=== PATIENT | female | born 1950 | race Caucasian/White ===

== ENCOUNTER 2017-08-11 16:27 | Inpatient (IN) | payer OTHER, MEDICARE ==
[~2017-08-11] VITALS: Ht 152.4 cm; Wt 65.0 kg
[~2017-08-11 16:27] MED LIST: MORPHINE SULFATE 4 MG/ML INJ IV PUSH ONE
[2017-08-11] MEDS ORDERED: ceFAZolin 2 GM PREMIX 50 ML ONE (16:31)
[2017-08-11 16:32] VITALS: O2SAT 98
[2017-08-11] MEDS ORDERED: DIPHTH/TETANUS/ACEL PERTUSSIS (BOOSTER) 0.5 ML VIAL/PFS IM ONE (16:32)
[2017-08-11] MEDS: SODIUM CHLOR 0.9% 1000 ML INJ 1,000 ML IV SCH (16:47)
[2017-08-11 16:49] LABS: I-STAT POTASSIUM 3.4 MMOL/L (3.5-4.9)
[2017-08-11 16:50] VITALS: BP 85/59; PULSE 102; RESP 25; TEMP 98; O2SAT 100
[2017-08-11 16:51] VITALS: BP 85/59; PULSE 102; RESP 25; TEMP 98; O2SAT 100
[2017-08-11 16:52] LABS: BASOPHIL % 0.2 % (0.0-2.0); EOSINOPHIL # 0.1 TH/MM3 (0-0.4); EOSINOPHIL % 0.5 % (0.0-4.0); HEMATOCRIT 34.1 % (35.0-46.0); HEMO FLAGS DIFF FINAL; LYMPH % 16.8 % (9.0-44.0); MEAN CELL VOLUME 95.8 FL (80.0-100.0); MEAN CORPUSCULAR HEMOGLOBIN 32.8 PG (27.0-34.0); MEAN CORPUSCULAR HGB CONC 34.2 % (32.0-36.0); MONO % 3.4 % (0.0-8.0); NEUT % 79.1 % (16.0-70.0); PLATELET COUNT 269 TH/MM3 (150-450); RED BLOOD COUNT 3.56 MIL/MM3 (4.00-5.30); RED CELL DISTRIBUTION WIDTH 13.3 % (11.6-17.2); WHITE BLOOD COUNT 17.7 TH/MM3 (4.0-11.0)
[2017-08-11 16:57] LABS: APTT (PATIENT) 26.4 SEC (24.3-30.1); PROTHROMBIN TIME - PATIENT 11.1 SEC (9.8-11.6)
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
[2017-08-11] MEDS ORDERED: SODIUM CHLORIDE 0.9% FLUSH 10 ML FLUSH IV FLUSH PRN (17:00)
[2017-08-11] MEDS ORDERED: ONDANSETRON HCL 4 MG/2 ML VIAL IV PUSH PRN (17:00)
[2017-08-11] MEDS ORDERED: Post-op Orders (for Pharmacy) MISC XX ONE (17:00)
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
[2017-08-11] MEDS ORDERED: IOHEXOL 350 MG/ML 10 ML VIAL (for RAD DIAG) IV PUSH ONE (17:14)
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
--- NOTE | 2017-08-11 17:51 | RADRPT ---
EXAM DATE/TIME: 08/11/2017 17:20 [facility] COMPARISON: SHOULDER LEFT (1 VW), August 11, 2017, 16:20. CT THORAX W CONTRAST, August 11, 2017, 17:02. INDICATIONS : Post reduction left shoulder. MEDICAL HISTORY : Non-responsive. SURGICAL HISTORY : Non-responsive. ENCOUNTER: Subsequent ACUITY: 1 day PAIN SCORE: Non-responsive. LOCATION: Left shoulder. FINDINGS: Interval reduction of anterior left shoulder dislocation. There is now anatomic alignment of the regina ohumeral joint. Small Hill-Sachs deformity. The redemonstration of mid to distal clavicle fracture. R emainder of exam is unchanged. CONCLUSION: 1. Anatomic alignment status post reduction of anterior left shoulder dislocation. 2. Small left humeral head Hill-Sachs deformity. 3. Mid to distal left clavicle fracture. Justin Ventura MD on August 11, 2017 at 17:46 Board Certified Radiologist. This report was verified electronically.
[2017-08-11] MEDS: MORPHINE SULFATE 4 MG/ML INJ IV PUSH PRN (17:54)
[2017-08-11 18:00] VITALS: PULSE 96
[2017-08-11] MEDS ORDERED: LIDOCAINE HCL 1% 50 ML VIAL ONE ×2 (18:07→19:35)
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
[2017-08-11] MEDS ORDERED: ALBUMIN HUMAN 5% 12.5 GM/250 ML BOTTLE IV ONE (19:10)
[2017-08-11 19:43] LABS: BLOOD GAS VENOUS HCO3 22 mmol/L (22-26); BLOOD GAS VENOUS O2 CONTENT 3.8 Vol % (9.0-17.0); BLOOD GAS VENOUS O2 HGB SAT 34 % (70-76); BLOOD GAS VENOUS PCO2 54 mmHg (44-48); BLOOD GAS VENOUS PO2 25 mmHg (35-40); BLOOD GAS VENOUS pH 7.22 (7.360-7.400); TEMP CORR TO 98.6
[2017-08-11 19:44] LABS: CRITICAL VALUE YES; LITER FLOW 4 L/M; OXYGEN DEVICE NASAL CANNULA
[2017-08-11 19:45] LABS: DRAW SITE CENTRAL LINE; STAT YES
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
[2017-08-11 20:00] VITALS: BP 87/50; PULSE 83; PULSE 90; RESP 23; TEMP 99; O2SAT 96
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
--- NOTE | 2017-08-11 20:34 | RADRPT ---
EXAM DATE/TIME: 08/11/2017 19:43 [facility] COMPARISON: CHEST SINGLE AP, August 11, 2017, 16:20. INDICATIONS : Evaluate for pneumothorax status post line placement attempt. MEDICAL HISTORY : None. SURGICAL HISTORY : None. ENCOUNTER: Subsequent ACUITY: 1 day PAIN SCORE: Non-responsive. LOCATION: chest FINDINGS: A single view of the chest demonstrates the lungs to be symmetrically aerated without evidence of mas s, infiltrate or effusion. No evidence of pneumothorax. The cardiomediastinal contours are unremark able. Fracture of the left clavicle is obscured by overlying metallic clip. CONCLUSION: No evidence of pneumothorax. Santiago Davis MD on August 11, 2017 at 20:32 Board Certified Radiologist. This report was verified electronically.
[2017-08-11] MEDS ORDERED: MISCELLANEOUS NURSING INFORMATION XX SCH (21:00)
[2017-08-11] MEDS ORDERED: RESP: ALBUTEROL 2.5 MG/IPRATROPIUM 0.5 MG NEB (PRN) INH (21:00)
[2017-08-11] MEDS: SODIUM CHLORIDE 0.9% FLUSH 10 ML FLUSH IV FLUSH SCH (21:00)
[2017-08-11] MEDS ORDERED: CHLORHEXIDINE GLUCONATE 2 % 1 PACK (2 CLOTHS) TOP PRN (21:00)
[2017-08-11] MEDS: DOCUSATE SODIUM 50 MG/SENNA 8.6 MG TAB PO SCH (21:15)
[2017-08-11] MEDS: levETIRAcetam INJ 500 MG in SODIUM CHLORIDE 0.9% INJ 100 ML IV SCH (21:16)
[2017-08-11] MEDS: FAMOTIDINE 20 MG TAB PO SCH (21:16)
[2017-08-11] MEDS: METHOCARBAMOL 500 MG TAB PO SCH (21:16)
[2017-08-11] MEDS: MAGNESIUM HYDROXIDE SUSP 30 ML CUP PO SCH (21:17)
[2017-08-11 21:30] VITALS: O2SAT 99
[2017-08-11] MEDS: LIDOCAINE HCL 5% PATCH T-DERMAL SCH (21:57)
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
[2017-08-11 23:46] LABS: HEMATOCRIT 29.9 % (35.0-46.0); REVIEW FLAG FINAL
[2017-08-12] VITALS (14 sets, daily range): BP systolic 56–130; BP diastolic 56–67; PULSE 64–81; RESP 16–20; TEMP 98–100.8; O2SAT 95–100
[2017-08-12] MEDS: ceFAZolin 500 MG/NS 100 ML IV SCH ×4 (00:17→09:29)
--- NOTE | 2017-08-12 01:11 | EKG ---
Date Performed: 08/11/2017 Time Performed: 19:14:56 PTAGE: 89 years EKG: Sinus rhythm . Inferior ST-T changes are nonspecific Borderline ECG NO PREVIOUS TRACING DOCTOR: David Correa Interpretating Date/Time 08/12/2017 01:10:44
[2017-08-12] MEDS: CHLORHEXIDINE GLUCONATE 2 % 1 PACK (2 CLOTHS) TOP SCH (03:43)
[2017-08-12 04:42] LABS: AUTOMATED NEUTROPHIL # 8.1 TH/MM3 (1.8-7.7); BASOPHIL % 0.1 % (0.0-2.0); HEMATOCRIT 28.3 % (35.0-46.0); HEMO FLAGS DIFF FINAL; LYMPH % 6.4 % (9.0-44.0); LYMPHOCYTE # 0.6 TH/MM3 (1.0-4.8); MEAN CELL VOLUME 92.1 FL (80.0-100.0); MEAN CORPUSCULAR HEMOGLOBIN 32.5 PG (27.0-34.0); MEAN CORPUSCULAR HGB CONC 35.3 % (32.0-36.0); MONO % 6.9 % (0.0-8.0); NEUT % 86.6 % (16.0-70.0); PLATELET COUNT 127 TH/MM3 (150-450); RED BLOOD COUNT 3.07 MIL/MM3 (4.00-5.30); RED CELL DISTRIBUTION WIDTH 15.8 % (11.6-17.2); WHITE BLOOD COUNT 9.4 TH/MM3 (4.0-11.0)
[2017-08-12 04:59] LABS: BICARBONATE 23.2 MEQ/L (21.0-32.0); POTASSIUM 3.6 MEQ/L (3.5-5.1)
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
[2017-08-12 05:21] LABS: CALCIUM-PROTEIN CORRECTED 8.3 MG/DL (8.5-10.1)
[2017-08-12] MEDS: METHOCARBAMOL 500 MG TAB PO SCH ×3 (05:48→21:28)
[2017-08-12] MEDS: SODIUM CHLOR 0.9% 1000 ML INJ 1,000 ML IV SCH ×2 (06:11→13:59)
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
[2017-08-12] MEDS: levETIRAcetam INJ 500 MG in SODIUM CHLORIDE 0.9% INJ 100 ML IV SCH (08:51)
[2017-08-12] MEDS: DOCUSATE SODIUM 50 MG/SENNA 8.6 MG TAB PO SCH ×2 (08:51→21:28)
[2017-08-12] MEDS: FAMOTIDINE 20 MG TAB PO SCH ×2 (08:52→21:28)
[2017-08-12] MEDS: oxyCODONE/ACETAMINOPHEN 5 MG/325 MG TAB PO PRN ×3 (08:52→21:28)
[2017-08-12] MEDS: SODIUM CHLORIDE 0.9% FLUSH 10 ML FLUSH IV FLUSH SCH ×2 (09:00→21:28)
[2017-08-12] MEDS: REMOVE OLD LIDOCAINE PATCH T-DERMAL SCH (09:00)
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
--- NOTE | 2017-08-12 12:03 | ECHRPT ---
Indication: trauma to chest CONCLUSIONS The left ventricular systolic function is low normal with an estimated ejection fraction in the rang e of 50- 55%. Normal left ventricular size. Trace mitral valve regurgitation. There is mild tricuspid valve regurgitation. BP: / HR: Rhythm: MEASUREMENTS (Male / Female) Normal Values Technical Quality:Very technically difficult study 2D ECHO LV Diastolic Diameter PLAX 2.9 cm 4.2 - 5.9 / 3.9 - 5.3 cm LV Systolic Diameter PLAX 2.3 cm IVS Diastolic Thickness 1.1 cm 0.6 - 1.0 / 0.6 - 0.9 cm LVPW Diastolic Thickness 0.8 cm 0.6 - 1.0 / 0.6 - 0.9 cm LV Relative Wall Thickness 0.6 RV Internal Dim ED PLAX 2.8 cm M-MODE Aortic Root Diameter MM 3.1 cm LA Systolic Diameter MM 3.8 cm LA Ao Ratio MM 1.2 AV Cusp Separation MM 2.4 cm DOPPLER Mitral E Point Velocity 62.7 cm/s Mitral A Point Velocity 63.7 cm/s Mitral E to A Ratio 1.0 LV E' Lateral Velocity 7.6 cm/s Mitral E to LV E' Lateral Ratio 8.3 LV E' Septal Velocity 8.0 cm/s Mitral E to LV E' Septal Ratio 7.8 TR Peak Velocity 195.0 cm/s TR Peak Gradient 15.2 mmHg Right Atrial Pressure 10.0 mmHg Pulmonary Artery Systolic Pressu 25.2 mmHg Right Ventricular Systolic Press 25.2 mmHg FINDINGS LEFT VENTRICLE The left ventricular systolic function is low normal with an estimated ejection fraction in the rang e of 50- 55%. Normal left ventricular size. RIGHT VENTRICLE Normal right ventricular size and systolic function. LEFT ATRIUM The left atrial size is normal. RIGHT ATRIUM The right atrial size is normal. ATRIAL SEPTUM Normal atrial septal thickness without atrial level shunting by limited color doppler interrogation. AORTA The aortic root and proximal ascending aorta are normal in size on limited imaging. MITRAL VALVE Structurally normal mitral valve. Trace mitral valve regurgitation. AORTIC VALVE Trileaflet aortic valve. No aortic valve stenosis or regurgitation. TRICUSPID VALVE Structurally normal tricuspid valve. There is mild tricuspid valve regurgitation. PULMONARY VALVE The pulmonary valve is not well visualized. VESSELS The inferior vena cava is normal in size. PERICARDIUM No pericardial effusion. Raad Greenwood MD (Electronically Signed) Final Date:12 August 2017 12:01
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
[2017-08-12] MEDS: MORPHINE SULFATE 4 MG/ML INJ IV PUSH PRN ×2 (12:31→16:56)
[2017-08-12] MEDS ORDERED: BACITRACIN TOP OINT 15 GM TUBE TOPICAL PRN (13:15)
[2017-08-12] MEDS: CEPHALEXIN MONOHYDRATE 500 MG CAP PO SCH ×2 (13:59→21:28)
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
[2017-08-12] MEDS: MAGNESIUM HYDROXIDE SUSP 30 ML CUP PO SCH (21:00)
[2017-08-12] MEDS: levETIRAcetam 500 MG TAB PO SCH (21:28)
[2017-08-12] MEDS: LIDOCAINE HCL 5% PATCH T-DERMAL SCH (21:39)
[2017-08-13] VITALS (12 sets, daily range): BP systolic 92–117; BP diastolic 51–62; PULSE 76–93; RESP 14–24; TEMP 97.3–100; O2SAT 91–100
[2017-08-13] MEDS: CHLORHEXIDINE GLUCONATE 2 % 1 PACK (2 CLOTHS) TOP SCH (03:39)
--- NOTE | 2017-08-13 04:59 | RADRPT ---
EXAM DATE/TIME: 08/13/2017 04:36 [facility] COMPARISON: CT BRAIN W/O CONTRAST, August 11, 2017, 16:50. INDICATIONS : Follow up trauma. RADIATION DOSE: 56.35 CTDIvol (mGy) ; Tabletop CT Head MEDICAL HISTORY : Non-responsive. SURGICAL HISTORY : Non-responsive. ENCOUNTER: Subsequent ACUITY: 2 days PAIN SCALE: Non-responsive LOCATION: cranial TECHNIQUE: Multiple contiguous axial images were obtained of the head. Using automated exposure control and adj ustment of the mA and/or kV according to patient size, radiation dose was kept as low as reasonably a chievable to obtain optimal diagnostic quality images. DICOM format image data is available electro nically for review and comparison. FINDINGS: CEREBRUM: The ventricles are normal for age. No evidence of midline shift, mass lesion, hemorrhage or acute in farction. No extra-axial fluid collections are seen. POSTERIOR FOSSA: The cerebellum and brainstem are intact. The 4th ventricle is midline. The cerebellopontine angle i s unremarkable. EXTRACRANIAL: Left scalp lacerations are again noted. Previously seen foreign matter has been removed. SKULL: The calvaria is intact. No evidence of skull fracture. CONCLUSION: Negative noncontrast head CT. No new or reproducible intracranial hemorrhage. King Avina MD on August 13, 2017 at 4:55 Board Certified Radiologist. This report was verified electronically.
[2017-08-13 05:43] LABS: BASOPHIL % 0.3 % (0.0-2.0); EOSINOPHIL # 0.1 TH/MM3 (0-0.4); HEMATOCRIT 27.1 % (35.0-46.0); HEMO FLAGS DIFF FINAL; LYMPH % 14.3 % (9.0-44.0); LYMPHOCYTE # 1.1 TH/MM3 (1.0-4.8); MEAN CELL VOLUME 91.4 FL (80.0-100.0); MEAN CORPUSCULAR HEMOGLOBIN 31.9 PG (27.0-34.0); MEAN CORPUSCULAR HGB CONC 34.9 % (32.0-36.0); MONO % 7.9 % (0.0-8.0); NEUT % 76.5 % (16.0-70.0); PLATELET COUNT 113 TH/MM3 (150-450); RED BLOOD COUNT 2.97 MIL/MM3 (4.00-5.30); RED CELL DISTRIBUTION WIDTH 15.7 % (11.6-17.2); WHITE BLOOD COUNT 7.8 TH/MM3 (4.0-11.0)
[2017-08-13] MEDS: CEPHALEXIN MONOHYDRATE 500 MG CAP PO SCH ×3 (05:44→22:00)
[2017-08-13] MEDS: METHOCARBAMOL 500 MG TAB PO SCH ×3 (05:44→22:01)
[2017-08-13 05:58] LABS: BICARBONATE 25.1 MEQ/L (21.0-32.0); POTASSIUM 3.3 MEQ/L (3.5-5.1)
--- NOTE | 2017-08-13 06:22 | RADRPT ---
EXAM DATE/TIME: 08/13/2017 04:55 [facility] COMPARISON: CHEST SINGLE AP, August 12, 2017, 3:26. INDICATIONS : Short of breath. MEDICAL HISTORY : Non-responsive. SURGICAL HISTORY : Non-responsive. ENCOUNTER: Subsequent ACUITY: 3 days PAIN SCORE: 0/10 LOCATION: Bilateral chest FINDINGS: Mild left base consolidation again noted not significantly changed right lung remains clear. No large effusion demonstrated. No pneumothorax. Heart size stable, within normal limits. CONCLUSION: No significant change trace left base consolidation. King Avina MD on August 13, 2017 at 6:20 Board Certified Radiologist. This report was verified electronically.
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
[2017-08-13] MEDS: REMOVE OLD LIDOCAINE PATCH T-DERMAL SCH (09:00)
[2017-08-13] MEDS ORDERED: LACTULOSE SYRUP 20 GM/30 ML CUP PO SCH (09:00)
[2017-08-13] MEDS ORDERED: POTASSIUM CHLORIDE 10 MEQ CONTROLLED RELEASE TAB PO ONE (09:00)
[2017-08-13] MEDS: levETIRAcetam 500 MG TAB PO SCH ×2 (09:20→22:00)
[2017-08-13] MEDS: DOCUSATE SODIUM 50 MG/SENNA 8.6 MG TAB PO SCH ×2 (09:20→21:00)
[2017-08-13] MEDS: SODIUM CHLORIDE 0.9% FLUSH 10 ML FLUSH IV FLUSH SCH ×2 (09:20→22:01)
[2017-08-13] MEDS: MORPHINE SULFATE 4 MG/ML INJ IV PUSH PRN (09:20)
[2017-08-13] MEDS: oxyCODONE/ACETAMINOPHEN 5 MG/325 MG TAB PO PRN ×4 (09:21→23:46)
[2017-08-13] MEDS: FAMOTIDINE 20 MG TAB PO SCH ×2 (09:21→22:00)
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
[2017-08-13] MEDS ORDERED: SENN1TAB PO (13:24)
[2017-08-13] MEDS ORDERED: MAGN400S PO (13:24)
--- NOTE | 2017-08-13 17:37 | PD.ORT.PN ---
Subjective Subjective Remarks Patient comfortable. Pain with movement of left arm. Objective Vitals Vital Signs Date Time Temp Pulse Resp B/P (MAP) Pulse Ox O2 Delivery O2 Flow Rate FiO2 08/13/17 16:00 88 08/13/17 16:00 98.2 88 24 117/62 (80) 96 08/13/17 14:00 77 08/13/17 12:00 98.1 77 19 92/51 (65) 98 08/13/17 12:00 77 08/13/17 10:00 78 08/13/17 09:41 16 08/13/17 08:24 100 Nasal Cannula 2.00 08/13/17 08:00 99.5 85 15 97/55 (69) 100 08/13/17 08:00 85 08/13/17 08:00 96 Room Air 08/13/17 07:00 100 Nasal Cannula 2.00 08/13/17 06:00 83 08/13/17 04:00 76 08/13/17 04:00 99.8 81 20 103/55 (71) 100 08/13/17 02:00 79 08/13/17 00:00 100.0 81 14 102/57 (72) 99 08/13/17 00:00 81 08/12/17 22:00 77 08/12/17 20:53 100 Nasal Cannula 3.00 08/12/17 20:00 100.3 75 16 105/56 (72) 100 08/12/17 20:00 75 08/12/17 19:00 100 Nasal Cannula 2.00 08/12/17 18:00 77 I/O 08/12/17 08/12/17 08/12/17 08/13/17 08/13/17 08/13/17 07:00 15:00 23:00 07:00 15:00 23:00 Intake Total 2268 ml 755 ml 720 ml 882 ml 88 ml Output Total 1000 ml 975 ml 750 ml Balance 1268 ml 755 ml -255 ml 132 ml 88 ml Intake Oral 720 ml 240 ml IV Total 2268 ml 755 ml 642 ml 88 ml Output Urine Total 1000 ml 975 ml 750 ml # Bowel Movements 0 0 0 Result Diagram: 08/13/1743408/13/17434 Imaging Last [address] 08/13/17599 Signed Impressions: Service Date/Time: Sunday, August 13, 2017 04:36 - CONCLUSION: Negative noncontrast head CT. No new or reproducible intracranial hemorrhage. King Avina MD Chest X-Ray 08/13/17 0600 Signed Impressions: Service Date/Time: Sunday, August 13, 2017 04:55 - CONCLUSION: No significant change trace left base consolidation. King Avina MD Objective Remarks Left shoulder skin intact swelling noted tenderness with direct palpation and with gentle ROM 2+ radial pulse good movement of digits Left clavicle mild ecchymosis noted tenderness with direct palpation shoulder immobilizer in place distally motor, neuro, and sensory intact Assessment & Plan Problem List: (1) Closed left clavicular fracture ICD Codes: S42.002A - Fracture of unspecified part of left clavicle, initial encounter for closed fracture Status: Acute Qualifiers: Qualified Codes: S42.002A - Fracture of unspecified part of left clavicle, initial encounter for closed fracture (2) Anterior dislocation of left shoulder ICD Codes: S43.015A - Anterior dislocation of left humerus, initial encounter Status: Acute Qualifiers: Qualified Codes: S43.015A - Anterior dislocation of left humerus, initial encounter Assessment and Plan Pain management ICU management Nonoperative fracture management for left clavicle Continue with using the shoulder immobilizer. Physical therapy - non weight bearing to [place] D/C planning Monitor Meet Yan Aug 13, 2017 17:37
[2017-08-13] MEDS: MAGNESIUM HYDROXIDE SUSP 30 ML CUP PO SCH (21:00)
[2017-08-13] MEDS: LIDOCAINE HCL 5% PATCH T-DERMAL SCH (22:00)
[2017-08-14] VITALS (7 sets, daily range): BP systolic 101–125; BP diastolic 57–62; PULSE 81–95; RESP 16–18; TEMP 97.1–99; O2SAT 90–93
[2017-08-14] MEDS: METHOCARBAMOL 500 MG TAB PO SCH ×3 (06:15→20:57)
[2017-08-14] MEDS: oxyCODONE/ACETAMINOPHEN 5 MG/325 MG TAB PO PRN (06:16)
[2017-08-14] MEDS: CEPHALEXIN MONOHYDRATE 500 MG CAP PO SCH ×3 (06:16→20:56)
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
[2017-08-14] MEDS ORDERED: LACTULOSE SYRUP 20 GM/30 ML CUP PO PRN (08:00)
[2017-08-14] MEDS: FAMOTIDINE 20 MG TAB PO SCH ×2 (08:14→20:56)
[2017-08-14] MEDS: DOCUSATE SODIUM 50 MG/SENNA 8.6 MG TAB PO SCH ×2 (08:14→20:57)
[2017-08-14] MEDS: levETIRAcetam 500 MG TAB PO SCH ×2 (08:14→20:57)
[2017-08-14] MEDS: SODIUM CHLORIDE 0.9% FLUSH 10 ML FLUSH IV FLUSH SCH ×2 (09:00→20:57)
[2017-08-14] MEDS: REMOVE OLD LIDOCAINE PATCH T-DERMAL SCH (09:00)
[2017-08-14] MEDS ORDERED: LORazepam 2 MG TAB PO PRN (12:15)
[2017-08-14] MEDS ORDERED: HALOPERIDOL LACTATE 5 MG/ML AMP IM ONE (12:15)
[2017-08-14] MEDS ORDERED: FLUMAZENIL 0.5 MG/5 ML VIAL IV PUSH PRN (12:15)
[2017-08-14] MEDS ORDERED: LORazepam 1 MG TAB PO PRN (12:15)
[2017-08-14] MEDS ORDERED: LORazepam 2 MG/ML VIAL IV PUSH PRN ×4 (12:15)
--- NOTE | 2017-08-14 13:08 | RADRPT ---
EXAM DATE/TIME: 08/14/2017 12:49 [facility] COMPARISON: CT BRAIN W/O CONTRAST, August 13, 2017, 4:36. INDICATIONS : Altered mental status, patient confused RADIATION DOSE: 56.35 CTDIvol (mGy) MEDICAL HISTORY : None SURGICAL HISTORY : Left hip replacement ENCOUNTER: Initial ACUITY: 4 - 6 days PAIN SCALE: 0/10 LOCATION: cranial TECHNIQUE: Multiple contiguous axial images were obtained of the head. Using automated exposure control and adj ustment of the mA and/or kV according to patient size, radiation dose was kept as low as reasonably a chievable to obtain optimal diagnostic quality images. DICOM format image data is available electro nically for review and comparison. FINDINGS: CEREBRUM: Mild diffuse cerebral atrophy. The ventricles are normal for degree of atrophy. No evidence of midli ne shift, mass lesion, hemorrhage or acute infarction. No extra-axial fluid collections are seen. POSTERIOR FOSSA: The cerebellum and brainstem are intact. The 4th ventricle is midline. The cerebellopontine angle i s unremarkable. EXTRACRANIAL: The visualized portion of the orbits is intact. Small soft tissue defect in the left anterolateral sc alp subcutaneous fat stranding and small focus of air or inferiorly extending to the superior rim. SKULL: The calvaria is intact. No evidence of skull fracture. CONCLUSION: 1. No acute intracranial abnormality. 2. Small soft tissue defect and diffuse soft tissue stranding involving the left scalp extending to t he superior orbital region. Thiss may be related to laceration and scalp trauma or cellulitis. Clinic al correlation is recommended. Justin Ventura MD on August 14, 2017 at 13:03 Board Certified Radiologist. This report was verified electronically.
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
[2017-08-14] MEDS: QUEtiapine FUMARATE 25 MG TAB PO SCH ×2 (16:00→20:57)
[2017-08-14] MEDS: MORPHINE SULFATE 4 MG/ML INJ IV PUSH PRN ×2 (16:00→22:08)
[2017-08-14 17:12] LABS: AUTOMATED NEUTROPHIL # 4.5 TH/MM3 (1.8-7.7); BASOPHIL % 0.5 % (0.0-2.0); EOSINOPHIL # 0.1 TH/MM3 (0-0.4); EOSINOPHIL % 1.6 % (0.0-4.0); HEMATOCRIT 24.6 % (35.0-46.0); HEMO FLAGS DIFF FINAL; LYMPH % 17.4 % (9.0-44.0); LYMPHOCYTE # 1.1 TH/MM3 (1.0-4.8); MEAN CELL VOLUME 91.8 FL (80.0-100.0); MEAN CORPUSCULAR HEMOGLOBIN 32.7 PG (27.0-34.0); MEAN CORPUSCULAR HGB CONC 35.7 % (32.0-36.0); MONO % 11.3 % (0.0-8.0); NEUT % 69.2 % (16.0-70.0); PLATELET COUNT 119 TH/MM3 (150-450); RED BLOOD COUNT 2.68 MIL/MM3 (4.00-5.30); RED CELL DISTRIBUTION WIDTH 14.8 % (11.6-17.2); WHITE BLOOD COUNT 6.5 TH/MM3 (4.0-11.0)
--- NOTE | 2017-08-14 17:31 | PD.ORT.PN ---
Subjective Subjective Remarks Patient confused this am. Sitting up at the edge of bed. LIZ. RN at bedside. Objective Vitals Vital Signs Date Time Temp Pulse Resp B/P (MAP) Pulse Ox O2 Delivery O2 Flow Rate FiO2 08/14/17 16:05 18 08/14/17 08:51 93 21 08/14/17 08:17 Room Air 08/14/17 08:00 97.8 95 16 108/60 (76) 90 08/14/17 04:00 97.1 83 18 101/58 (72) 92 08/14/17 00:00 98.5 81 18 114/57 (76) 92 08/13/17 20:00 97.3 79 18 105/52 (69) 91 08/13/17 19:00 Room Air 08/13/17 18:00 93 I/O 08/13/17 08/13/17 08/13/17 08/14/17 08/14/17 08/14/17 07:00 15:00 23:00 07:00 15:00 23:00 Intake Total 882 ml 88 ml 720 ml Output Total 750 ml 88 ml Balance 132 ml 88 ml 632 ml Intake Oral 240 ml 720 ml IV Total 642 ml 88 ml Output Urine Total 750 ml 88 ml # Voids 4 4 # Bowel Movements 0 4 Result Diagram: 08/14/17 1635 08/13/17 0435 Imaging Last [address] 08/13/17599 Signed Impressions: Service Date/Time: Sunday, August 13, 2017 04:36 - CONCLUSION: Negative noncontrast head CT. No new or reproducible intracranial hemorrhage. King Avina MD Chest X-Ray 08/13/17599 Signed Impressions: Service Date/Time: Sunday, August 13, 2017 04:55 - CONCLUSION: No significant change trace left base consolidation. King Avina MD Objective Remarks Left shoulder skin intact swelling noted tenderness with direct palpation and with gentle ROM 2+ radial pulse good movement of digits Left clavicle mild ecchymosis noted tenderness with direct palpation shoulder immobilizer in place distally motor, neuro, and sensory intact Assessment & Plan Problem List: (1) Closed left clavicular fracture ICD Codes: S42.002A - Fracture of unspecified part of left clavicle, initial encounter for closed fracture Status: Acute Qualifiers: Qualified Codes: S42.002A - Fracture of unspecified part of left clavicle, initial encounter for closed fracture (2) Anterior dislocation of left shoulder ICD Codes: S43.015A - Anterior dislocation of left humerus, initial encounter Status: Acute Qualifiers: Qualified Codes: S43.015A - Anterior dislocation of left humerus, initial encounter Assessment and Plan Patient transferred to 5th floor Pain management Nonoperative fracture management for left clavicle Continue with using the shoulder immobilizer. Physical therapy - non weight bearing to LUE D/C planning - anticipating SNF vs Home Orthopedically stable for discharge. Will need medical clearance. F/U in [address] Roblero or JERAMY in office. Meet Yan Aug 14, 2017 17:31
[2017-08-14 17:33] LABS: BICARBONATE 25.8 MEQ/L (21.0-32.0); POTASSIUM 3.3 MEQ/L (3.5-5.1)
[2017-08-14] MEDS: LIDOCAINE HCL 5% PATCH T-DERMAL SCH (20:57)
[2017-08-15] VITALS (7 sets, daily range): BP systolic 97–114; BP diastolic 55–62; PULSE 87–100; RESP 16–20; TEMP 97.9–99.3; O2SAT 93–97
[2017-08-15] MEDS: MORPHINE SULFATE 4 MG/ML INJ IV PUSH PRN ×2 (04:02→08:21)
[2017-08-15] MEDS: METHOCARBAMOL 500 MG TAB PO SCH ×3 (05:33→21:33)
[2017-08-15] MEDS: QUEtiapine FUMARATE 25 MG TAB PO SCH ×3 (05:33→21:33)
[2017-08-15] MEDS: CEPHALEXIN MONOHYDRATE 500 MG CAP PO SCH ×3 (05:33→21:32)
[2017-08-15] MEDS ORDERED: oxyCODONE/ACETAMINOPHEN 7.5 MG/325 MG TAB PO PRN (08:00)
[2017-08-15] MEDS: DOCUSATE SODIUM 50 MG/SENNA 8.6 MG TAB PO SCH ×2 (08:21→21:00)
[2017-08-15] MEDS: FAMOTIDINE 20 MG TAB PO SCH ×2 (08:21→21:00)
[2017-08-15] MEDS: SODIUM CHLORIDE 0.9% FLUSH 10 ML FLUSH IV FLUSH SCH ×2 (08:21→21:32)
[2017-08-15] MEDS: levETIRAcetam 500 MG TAB PO SCH ×2 (08:21→21:00)
[2017-08-15] MEDS: REMOVE OLD LIDOCAINE PATCH T-DERMAL SCH (08:24)
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
[2017-08-15] MEDS ORDERED: INFLUENZA VIRUS VACCINE (QUADRIVALENT) 0.5 ML SYR IM ONE (10:00)
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
[2017-08-15] MEDS ORDERED: LIDO5DIS5 T-DERMAL (13:42)
[2017-08-15] MEDS ORDERED: OXYC1TAB35 PO (13:42)
[2017-08-15] MEDS ORDERED: OXYC1TAB63 PO (13:42)
[2017-08-15] MEDS ORDERED: GNP100TA3 PO (13:42)
[2017-08-15] MEDS ORDERED: QUET1TAB7 PO (13:42)
[2017-08-15] MEDS ORDERED: BACI500O2 TOPICAL (13:42)
[2017-08-15] MEDS ORDERED: METH500T3 PO (13:42)
[2017-08-15] MEDS ORDERED: CEPH500C PO (13:42)
[2017-08-15] MEDS: oxyCODONE/ACETAMINOPHEN 5 MG/325 MG TAB PO PRN (20:13)
[2017-08-15] MEDS: LIDOCAINE HCL 5% PATCH T-DERMAL SCH (21:00)
[2017-08-16] VITALS: BP 111/56; PULSE 84; RESP 20; TEMP 98.6; O2SAT 95
[2017-08-16] MEDS: oxyCODONE/ACETAMINOPHEN 5 MG/325 MG TAB PO PRN (01:58)
[2017-08-16 04:00] VITALS: BP 121/63; PULSE 75; RESP 20; TEMP 97.6; O2SAT 97
[2017-08-16] MEDS: CEPHALEXIN MONOHYDRATE 500 MG CAP PO SCH (05:34)
[2017-08-16] MEDS: METHOCARBAMOL 500 MG TAB PO SCH (05:35)
[2017-08-16] MEDS: QUEtiapine FUMARATE 25 MG TAB PO SCH (05:35)
[2017-08-16 08:47] VITALS: BP 127/70; PULSE 89; RESP 16; TEMP 97.6; O2SAT 96
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
[2017-08-16] MEDS: REMOVE OLD LIDOCAINE PATCH T-DERMAL SCH (09:00)
[2017-08-16] MEDS: DOCUSATE SODIUM 50 MG/SENNA 8.6 MG TAB PO SCH (09:00)
[2017-08-16] MEDS: levETIRAcetam 500 MG TAB PO SCH (09:03)
[2017-08-16] MEDS: FAMOTIDINE 20 MG TAB PO SCH (09:04)
[2017-08-16] MEDS: SODIUM CHLORIDE 0.9% FLUSH 10 ML FLUSH IV FLUSH SCH (09:04)
[2017-08-16] MEDS ORDERED: QUET1TAB7 PO (10:40)
[2017-08-16] MEDS ORDERED: QUEtiapine FUMARATE 25 MG TAB PO SCH (10:45)
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
[2017-08-16 12:07] VITALS: BP 160/79; PULSE 91; RESP 18; TEMP 98; O2SAT 96
[2017-08-16] MEDS ORDERED: QUEtiapine FUMARATE 25 MG TAB PO ONE (12:30)
[2017-08-16] MEDS ORDERED: VALPROIC ACID 250 MG CAP PO SCH (12:30)
[2017-08-18] MEDS ORDERED: THIAMINE HCL 100 MG TAB PO SCH (09:00)
[2017-08-28] MEDS ORDERED: QUET1TAB7 PO (08:41)
[2017-08-28] MEDS ORDERED: THERTAB15 PO (08:41)
[2017-08-28] MEDS ORDERED: ACET1TAB86 PO (08:41)
[2017-08-28] MEDS ORDERED: SENN1TAB PO (08:41)
[2017-08-28] MEDS ORDERED: GNP100TA3 PO (08:41)
[2017-08-28] MEDS ORDERED: GNP5TAB6 PO (08:41)
[2017-08-28] MEDS ORDERED: HYDR-3580 PO (09:36)
[2017-08-28] MEDS ORDERED: CLON.5 PO (09:36)
== END 2017-08-16 13:02 | DRG 964 ==
LOC: NEPI 16:27 → EDBD 16:55 → NEDA 16:55 → MERGE 16:55 → N03A 17:30 → N05B 08-13 20:00
PROVIDERS: ADMIT Surgery; ATTEND Surgery
PROC: 0RSKXZZ Reposition Left Shoulder Joint, External Approach (ICD-10-PCS; principal; 2017-08-11)
PROC: 0HQ0XZZ Repair Scalp Skin, External Approach (ICD-10-PCS; 2017-08-11)
PROC: 06HM33Z Insertion of Infusion Device into Right Femoral Vein, Percutaneous Approach (ICD-10-PCS; 2017-08-11)
PROC: 30233N1 Transfusion of Nonautologous Red Blood Cells into Peripheral Vein, Percutaneous Approach (ICD-10-PCS; 2017-08-11)
PROC: 0HQ0XZZ Repair Scalp Skin, External Approach (ICD-10-PCS; 2017-08-12)
DX: S06.369A Traumatic hemorrhage of cerebrum, unspecified, with loss of consciousness of unspecified duration, initial encounter (principal); S27.0XXA Traumatic pneumothorax, initial encounter; F10.231 Alcohol dependence with withdrawal delirium; I95.9 Hypotension, unspecified; S22.32XA Fracture of one rib, left side, initial encounter for closed fracture; S42.022A Displaced fracture of shaft of left clavicle, initial encounter for closed fracture; R91.1 Solitary pulmonary nodule; S01.01XA Laceration without foreign body of scalp, initial encounter; S43.015A Anterior dislocation of left humerus, initial encounter; R40.2412 Glasgow coma scale score 13-15, at arrival to emergency department; Y92.410 Unspecified street and highway as the place of occurrence of the external cause; V48.5XXA Car driver injured in noncollision transport accident in traffic accident, initial encounter; Y90.9 Presence of alcohol in blood, level not specified; Z96.642 Presence of left artificial hip joint
CPT/HCPCS: 23650; 36430; 36556; 70450; 70486; 71010; 71260; 72125; 72170; 73020; 73030; 74177; 76937; 80048; 82435; 82565; 82805; 82947; 84132; 84155; 84295; 84520; 85014; 85018; 85025; 85610; 85730; 86850; 86900; 86901; 86920; 87641; 90471; 90686; 90715; 93005; 93306; 94150; 94640; 94667; 94668; 96361; 96374; 99291; A0431-QM-SH; A0436-QM-SH; G0390; J0690; J1630; J1953; J2270; J7030; P9016; P9045; Q2038; Q9967